=== PATIENT | male | born 1960 | race African-American/Black ===

== ENCOUNTER 2018-06-22 00:51 | Emergency (ER) | payer BC ==
[~2018-06-22] VITALS: Ht 188 cm; Wt 108.9 kg
--- NOTE | 2018-06-22 01:56 | PHYS DOC ---
Past Medical History Past Medical History: Hypertension Past Surgical History: Tonsillectomy Smoking: Cigarettes (The patient is a nonsmoker.) Alcohol Use: Occasionally Drug Use: None Adult General Chief Complaint Chief Complaint: NAUSEA/VOMITING/DIARRHA HPI HPI Patient is a pleasant 58-year-old male who presents to the emergency department for evaluation. He states that he awakened at about 12 AM to use the restroom this morning, when he had the sudden onset of dizziness, described as a sense of rotation. He also had several episodes of nausea and vomiting. He denies any abdominal pain. Denies any chest pain shortness of breath, numbness or focal weakness. He has not had any vision changes. He reports having chronic tinnitus in his ears for the past several months, and has seen ENT for this, had been told that this is related to his sinuses. He states that his left ear seems to be worse. He has not had any acute hearing changes. Head movements seem to worsen the patient's dizziness. There are no other alleviating or exacerbating factors to his symptoms otherwise. Review of Systems Review of Systems Constitutional: Denies fever or chills [] Eyes: Denies change in visual acuity, redness, or eye pain [] HENT: Denies nasal congestion or sore throat [] Respiratory: Denies cough or shortness of breath [] Cardiovascular: No additional information not addressed in HPI [] GI: Denies abdominal pain, nausea, vomiting, bloody stools or diarrhea [] : Denies dysuria or hematuria [] Musculoskeletal: Denies back pain or joint pain [] Integument: Denies rash or skin lesions [] Neurologic: Denies headache, focal weakness or sensory changes. Reports dizziness. [] Endocrine: Denies polyuria or polydipsia [] All other systems were reviewed and found to be within normal limits, except as documented in this note. Current Medications Current Medications Current Medications Medications (Trade) Dose Ordered Sig/Traci Start Time Stop Time Status Last Admin Dose Admin Lorazepam (Ativan) 0.5 mg 1X ONCE 06/22/18 02:15 06/22/18 02:16 DC 06/22/18 02:18 0.5 MG Meclizine HCl (Antivert) 50 mg 1X ONCE 06/22/18 02:15 06/22/18 02:16 DC 06/22/18 02:17 50 MG Methylprednisolone Sodium Succinate (SOLU-Medrol 125MG VIAL) 125 mg 1X ONCE 06/22/18 02:15 06/22/18 02:16 DC 06/22/18 02:18 125 MG Ondansetron HCl (Zofran) 4 mg 1X ONCE 06/22/18 02:15 06/22/18 02:16 DC 06/22/18 02:17 4 MG Potassium Chloride/Sodium Chloride 1,000 ml @ 250 mls/hr Q4H 06/22/18 03:00 06/22/18 06:59 06/22/18 03:11 250 MLS/HR Potassium Chloride/Water 50 ml @ 50 mls/hr Q1H 06/22/18 03:00 06/22/18 04:59 UNV Potassium Chloride (Klor-Con) 40 meq 1X ONCE 06/22/18 03:15 06/22/18 03:16 DC 06/22/18 03:11 40 MEQ Sodium Chloride 1,000 ml @ 1,000 mls/hr 1X ONCE 06/22/18 02:15 06/22/18 03:14 DC 06/22/18 02:18 1,000 MLS/HR Allergies Allergies Allergies Coded Allergies Type Severity Reaction Last Updated Verified No Known Drug Allergies 06/22/18 No Physical Exam Physical Exam PHYSICAL EXAM: CONSTITUTIONAL: Well developed, well nourished HEAD: normocephalic, atraumatic EENT: PERRL, EOMI. there is nystagmus noted, with the fast component to the left , at rest. This is horizontal nystagmus. There is no vertical nystagmus. Conjunctivae normal color, sclerae non-icteric; moist mucous membranes. Tympanic membranes are normal bilaterally. There is no gross hearing deficit. NECK: Supple, non-tender; no meningismus. LUNGS: Lungs CTA, breathing even and unlabored. Normal air movement. HEART: Regular rate and rhythm, no murmur CHEST: No deformity; non-tender ABDOMEN: The abdomen is soft, and non-tender, no masses or bruits. EXTREM: Normal ROM; no deformity, no calf tenderness. Normal pulses palpable in all extremities. There is no pedal edema. SKIN: No rash; no diaphoresis NEURO: Alert; normal speech and cognition; CN's grossly intact; strength grossly intact without focal deficit.Finger nose finger and safk-fu-qvga testing are normal. There is mild reproduction of dizziness, and mild nystagmus on Grecia-Hallpike maneuver with the head to the right. The patient is unable to tolerate an attempt with the maneuver to the left. BACK: No CVA TTP. Current Patient Data Vital Signs Vital Signs Date Time Temp Pulse Resp B/P (MAP) Pulse Ox O2 Delivery O2 Flow Rate FiO2 06/22/18 04:29 91 18 163/82 (109) 99 06/22/18 01:18 97.9 Room Air 97.9 Lab Values Laboratory Tests Test 06/22/18 01:00 06/22/18 01:30 White Blood Count 8.2 x10^3/uL (4.0-11.0) Red Blood Count 5.76 x10^6/uL (4.30-5.70) H Hemoglobin 15.1 g/dL (13.0-17.5) Hematocrit 43.5 % (39.0-53.0) Mean Corpuscular Volume 76 fL (79-100) L Mean Corpuscular Hemoglobin 26 pg (25-35) Mean Corpuscular Hemoglobin Concent 35 g/dL (31-37) Red Cell Distribution Width 14.7 % (11.5-14.5) H Platelet Count 298 x10^3/uL (140-400) Neutrophils (%) (Auto) 38 % (31-73) Lymphocytes (%) (Auto) 46 % (24-48) Monocytes (%) (Auto) 13 % (0-9) H Eosinophils (%) (Auto) 3 % (0-3) Basophils (%) (Auto) 1 % (0-3) Neutrophils # (Auto) 3.1 x10^3uL (1.8-7.7) Lymphocytes # (Auto) 3.7 x10^3/uL (1.0-4.8) Monocytes # (Auto) 1.0 x10^3/uL (0.0-1.1) Eosinophils # (Auto) 0.3 x10^3/uL (0.0-0.7) Basophils # (Auto) 0.1 x10^3/uL (0.0-0.2) Sodium Level 143 mmol/L (136-145) Potassium Level 2.8 mmol/L (3.5-5.1) *L Chloride Level 104 mmol/L (98-107) Carbon Dioxide Level 28 mmol/L (21-32) Anion Gap 11 (6-14) Blood Urea Nitrogen 15 mg/dL (8-26) Creatinine 1.0 mg/dL (0.7-1.3) Estimated GFR (Cockcroft-Gault) 92.2 BUN/Creatinine Ratio 15 (6-20) Glucose Level 149 mg/dL (70-99) H Calcium Level 8.7 mg/dL (8.5-10.1) Total Bilirubin 0.6 mg/dL (0.2-1.0) Aspartate Amino Transferase (AST) 20 U/L (15-37) Alanine Aminotransferase (ALT) 31 U/L (16-63) Alkaline Phosphatase 58 U/L (46-116) Troponin I Quantitative < 0.017 ng/mL (0.000-0.055) Total Protein 7.6 g/dL (6.4-8.2) Albumin 3.7 g/dL (3.4-5.0) Albumin/Globulin Ratio 0.9 (1.0-1.7) L Magnesium Level 2.3 mg/dL (1.8-2.4) Laboratory Tests 06/22/18 01:00 Laboratory Tests 06/22/18 01:00 EKG EKG [Normal sinus rhythm at a rate of 79 beats for minute, left axis deviation, left anterior fascicular block, right bundle-branch block. There are no acute ischemic ST/T changes. There are no old EKGs available for comparison.] Radiology/Procedures Radiology/Procedures [PROCEDURE: CT HEAD WO CONTRAST INDICATION: DIZZINESS COMPARISON: None. TECHNIQUE: Axial CT images obtained through the head without contrast. One or more of the following individualized dose reduction techniques were utilized for this examination: 1. Automated exposure control; 2. Adjustment of the mA and/or kV according to patient size; 3. Use of iterative reconstruction technique. FINDINGS: No midline shift. Suprasellar cistern is not effaced. There is mild prominence of the subdural space frontally. No definite acute intracranial hemorrhage. Mild scattered foci of low-attenuation white matter. IMPRESSION: 1. No definite acute intracranial hemorrhage. 2. There is some evidence of prominence of the subdural space frontally which could be secondary to some mild atrophic changes to the frontal lobes or small subdural hygroma. 3. Mild scattered foci of low-attenuation white matter. Nonspecific but can be seen with chronic small vessel ischemic disease. 4. There are some mucoceles or polyps in the partially visualized maxillary sinuses. ] Course & Med Decision Making Course & Med Decision Making Pertinent Labs and Imaging studies reviewed. (See chart for details) [5:20 AM: The patient's condition remained stable. He is feeling significantly better. He is able to family without any significant dizziness. His nystagmus has resolved as well. He ambulates with a stable gait. I discussed test results , the need for close follow-up and return precautions. I do suspect his hypokalemia is related to his vomiting. He will be given potassium supplementation for the coming days. Return precautions were discussed in detail.] Dragon Disclaimer Dragon Disclaimer This electronic medical record was generated, in whole or in part, using a voice recognition dictation system. Departure Departure Impression: Primary Impression: Vertigo Additional Impression: Hypokalemia Disposition: 01 HOME, SELF-CARE Condition: STABLE Referrals: DELMAR ALVARADO MD (PCP) ALIROI ESTEVEZ MD, COLLEEN N MD Patient Instructions: Vertigo Scripts Prednisone (PREDNISONE) 20 Mg Tablet 40 MG PO DAILY for 5 Days, #10 TAB Prov: NÉSTOR AJ MD 06/22/18 Potassium Chloride (POTASSIUM CHLORIDE) 20 Meq Tablet.er 20 MEQ PO DAILY for 10 Days, #10 TAB.SR Prov: NÉSTOR AJ MD 06/22/18 Meclizine Hcl (MECLIZINE HCL) 25 Mg Tablet 25 MG PO Q6H PRN for dizziness, #30 TAB Prov: NÉSTOR AJ MD 06/22/18 Problem Qualifiers NÉSTOR AJ MD Jun 22, 2018 01:56
[2018-06-22 02:09] LABS: BASO # 0.1 x10^3/uL (0.0-0.2); BASO % 1 % (0-3); EOS # 0.3 x10^3/uL (0.0-0.7); EOS % 3 % (0-3); HEMATOCRIT 43.5 % (39.0-53.0); HEMOGLOBIN 15.1 g/dL (13.0-17.5); LYMPH # 3.7 x10^3/uL (1.0-4.8); LYMPH % 46 % (24-48); MEAN CORPUSCULAR HEMOGLOBIN 26 pg (25-35); MEAN CORPUSCULAR HGB CONC 35 g/dL (31-37); MEAN CORPUSCULAR VOLUME 76 fL (79-100); MONO % 13 % (0-9); NEUT # 3.1 x10^3uL (1.8-7.7); NEUT % 38 % (31-73); PLATELET COUNT 298 x10^3/uL (140-400); RED BLOOD COUNT 5.76 x10^6/uL (4.30-5.70); RED CELL DISTRIBUTION WIDTH 14.7 % (11.5-14.5); WHITE BLOOD COUNT 8.2 x10^3/uL (4.0-11.0)
[2018-06-22] MEDS ORDERED: methylPREDNISolone SOD SUCC PF 125 MG/2 ML VIAL. IV ONE (02:15)
[2018-06-22] MEDS ORDERED: IV NORMAL SALINE 1000ML BAG 1,000 ML IV ONE (02:15)
[2018-06-22] MEDS ORDERED: ONDANSETRON PF 4 MG/2 ML VIAL. IV ONE (02:15)
[2018-06-22] MEDS ORDERED: MECLIZINE HCL 12.5 MG TABLET. PO ONE (02:15)
[2018-06-22 02:38] LABS: ALBUMIN 3.7 g/dL (3.4-5.0); ALBUMIN/GLOBULIN RATIO 0.9 (1.0-1.7); CALCIUM 8.7 mg/dL (8.5-10.1); GFR 92.2; TOTAL BILIRUBIN 0.6 mg/dL (0.2-1.0); TOTAL PROTEIN 7.6 g/dL (6.4-8.2)
[2018-06-22 02:40] LABS: POTASSIUM 2.8 mmol/L (3.5-5.1)
[2018-06-22] MEDS ORDERED: POTASSIUM CL 40MEQ IN 0.9%NACL 1,000 ML IV SCH (03:00)
[2018-06-22] MEDS ORDERED: POTASSIUM CHLORIDE 20MEQ 50 ML IV SCH (03:00)
--- NOTE | 2018-06-22 03:06 | RAD ---
INDICATION: DIZZINESS COMPARISON: None. TECHNIQUE: Axial CT images obtained through the head without contrast. One or more of the following individualized dose reduction techniques were utilized for this examination: 1. Automated exposure control; 2. Adjustment of the mA and/or kV according to patient size; 3. Use of iterative reconstruction technique. FINDINGS: No midline shift. Suprasellar cistern is not effaced. There is mild prominence of the subdural space frontally. No definite acute intracranial hemorrhage. Mild scattered foci of low-attenuation white matter. IMPRESSION: 1. No definite acute intracranial hemorrhage. 2. There is some evidence of prominence of the subdural space frontally which could be secondary to some mild atrophic changes to the frontal lobes or small subdural hygroma. 3. Mild scattered foci of low-attenuation white matter. Nonspecific but can be seen with chronic small vessel ischemic disease. 4. There are some mucoceles or polyps in the partially visualized maxillary sinuses. Electronically signed by: Toy Bailey MD (06/22/2018 3:03 AM) [facility]
[2018-06-22] MEDS ORDERED: POTASSIUM CHLORIDE 20 MEQ TABLET.ER. PO ONE (03:15)
[2018-06-22 04:29] VITALS: BP 163/82
[2018-06-22] MEDS ORDERED: PRED20TA PO (05:25)
[2018-06-22] MEDS ORDERED: POTA20TA82 PO (05:25)
[2018-06-22] MEDS ORDERED: MECL25TA3 PO (05:25)
--- NOTE | 2018-06-22 07:14 | EKG ---
[facility] [address] [place] [address] Test Date: 2018-06-22 Test Time: 01:31:12 Pat Name: ELLY GIL Department: Room: Gender: M [employer]: : 1960 Requested By: NÉSTOR AJ Order Number: [id number] Reading MD: Miller Syed MD Measurements Intervals Harrison Rate: 79 P: 47 CA: 174 QRS: -31 QRSD: 138 T: 10 QT: 416 QTc: 478 Interpretive Statements SINUS RHYTHM RBBB LAFB NON-SPECIFIC ST/T CHANGES Electronically Signed On 06-25-2018 11:19:51 CDT by Miller Syed MD
== END 2018-06-22 05:43 | disposition home or self-care (01) ==
LOC: ER 00:51
DX: R42 Dizziness and giddiness (principal); R11.2 Nausea with vomiting, unspecified; E87.6 Hypokalemia; I10 Essential (primary) hypertension; Z90.89 Acquired absence of other organs
CPT/HCPCS: 36415; 70450; 80053; 83735; 84484; 85025; 93005; 96361; 96365; 96375; 99285; J2060; J2405; J2930; J3480; J7030; J8597